=== PATIENT | male | born 1990 | race Two or more races ===

== ENCOUNTER 2018-11-26 08:37 | Emergency (ER) | payer OTHER ==
[2018-11-26 08:47] VITALS: BMI 25.9
--- NOTE | 2018-11-26 08:50 | PDOC ---
History of Present Illness - General Chief Complaint: Back Pain Stated Complaint: LOWER BACK PAIN - History of Present Illness Initial Comments: 11/26/18 08:48 28 yo male with no PMH presents with complaint of left sided lower back pain which began earlier this morning. He states that he tried to use the restroom but did not feel he needed to. He drank some tea his mother gave him which relieved his symptoms temporarily but they quickly returned. He states that he has vomited a few times since this morning, non bloody, non bilious. He also endorses tightness and pain in his hands and a rapid respiratory rate. Past History - Travel Traveled outside of the country in the last 30 days: No - Past Medical History Allergies/Adverse Reactions: Allergies Allergy/AdvReac Type Severity Reaction Status Date / Time shrimp Allergy Verified 11/26/18 08:44 Home Medications: Ambulatory Orders traMADol HCL [Ultram] 50 mg PO BID #8 tablet MDD 2 11/26/18 COPD: No Disorders: Yes (renal infection,) - Suicide/Smoking/Psychosocial Hx Smoking History: Never smoked Review of Systems - Review of Systems Constitutional: Yes: Weakness HEENTM: No: Blurred Vision Respiratory: No: Cough Cardiac (ROS): No: Chest Pain ABD/GI: Yes: Vomiting. No: Diarrhea, Nausea : No: Burning, Dysuria, Discharge Neurological: Yes: Tingling Psychiatric: Yes: Anxiety *Physical Exam - Vital Signs Last Vital Signs Temp Pulse Resp BP Pulse Ox 98.3 F 104 H 28 H 152/79 100 11/26/18 08:44 11/26/18 08:44 11/26/18 08:44 11/26/18 08:44 11/26/18 08:44 - Physical Exam Comments: 11/26/18 08:49 GEN: A&O, moderate emotional/pain distress HEENT: Moist mucus membranes HEART: Tachycardic, regular rhythm, no murmurs noted LUNGS: CTA b/l, increased respiratory rate with shallow breathing ABDOMEN: Soft, nontender MSK: Left lateral pain in lower thoracic and upper lumbar regions EXTREMITIES: 2+ pulses NEURO: CN II-XII in tact, 5/5 strength throghout, normal sensation throughout, flexion of C5 nerve distribution Moderate Sedation - Procedure Monitoring Vital Signs: Procedure Monitoring Vital Signs Temperature 98.3 F 11/26/18 08:44 Pulse Rate 104 H 11/26/18 08:44 Respiratory Rate 28 H 11/26/18 08:44 Blood Pressure 152/79 11/26/18 08:44 O2 Sat by Pulse Oximetry (%) 100 11/26/18 08:44 ED Treatment Course - LABORATORY CBC & Chemistry Diagram: 11/26/18 09:17 11/26/18 09:17 Medical Decision Making - Medical Decision Making 11/26/18 09:40 28 yo male presents with Left sided lower back pain that began this morning. He currently appears anxious which could likely be exacerbated by mother and family present in the room. He states he is the only son and the youngest child and that his mother is very protective of him. Pt does endorse a few episodes of vomiting. CBC, CMP, and Spiral CT to r/o nephrolithiasis pending chemistry. Will give Toradol 15 mg IV and Benadryl 25 mg IV for pain control and anxiety and reassess. 11/26/18 11:32 CT scan resulted with 4mm stone in proximal ureter. Pt feels much better followng Toradol. Will discharge with Urology follow up and urine strainer in addition to recommending plenty of PO fluid intake, Aleve/Ibuprofen for pain, with script for Tramadol for breakthrough pain. *DC/Admit/Observation/Transfer Diagnosis at time of Disposition: Nephrolithiasis - Discharge Dispostion Disposition: HOME Condition at time of disposition: Stable Decision to Admit order: No - Prescriptions Prescriptions: traMADol HCL [Ultram] 50 mg PO BID #8 tablet MDD 2 - Referrals Referrals: ON STAFF,NOT [Primary Care Provider] - Malick Moralez MD [Staff Physician] - - Patient Instructions Printed Discharge Instructions: DI for Kidney Stones Additional Instructions: You were seen in the emergency department today for a complaint of left sided lower back pain. You were found to have a kidney stone on the left side on a CT scan. It is small enough to where you will likely pass the stone without any additional procedures. It is important that you drink plenty of fluids to maintain adequate hydration. You can take Aleve/Ibuprofen for your pain as indicated on the appropriate packaging. If you still have severe pain you can take Tramadol which has been sent to your pharmacy. You should start with a half of a tablet at first and take the other half if you are still having significant pain. You should strain all of your urine until the stone passes with the provided urine strainer or another similar to it, and you should keep the stone and take to your urologist who may wish to send it off for analysis. You should follow up with a urologist for further evaluation and management of your kidney stones and to help prevent them from happening in the future. If you have any severe pain, fevers, large ammounts of blood in your urine, or any other concerning symptoms, you should be seen by your doctor or return to the emergency department. - Post Discharge Activity Forms/Work/School Notes: Back to School
--- NOTE | 2018-11-26 09:00 | PDOC ---
Attending Attestation - Resident Resident Name: Khang Oreilly - ED Attending Attestation I have performed the following: I have examined & evaluated the patient, The case was reviewed & discussed with the resident, I agree w/resident's findings & plan, Exceptions are as noted - HPI HPI: 11/26/18 10:23 this is a 28 yo M who presents to the ER with a complaint of left flank pain which began this morning No fevers or chills Pain was initially bearable after taking a tea but then became severe EMS called En route, pt developed carpopedal spasm No prior episodes like this no fevers or chills - Physicial Exam PE: 11/26/18 10:20 GENERAL: The patient is in no acute distress. HEAD: Normal with no signs of trauma. EYES: PERRLA, EOMI, sclera anicteric, conjunctiva clear. ENT: Ears normal, nares patent, oropharynx clear without exudates. Moist mucous membranes. NECK: Normal range of motion LUNGS: Breath sounds equal, clear to auscultation bilaterally. HEART:Regular rate and rhythm, normal S1 and S2 without murmur, rub or gallop. ABDOMEN: Soft, mild left lower quadrant tenderness to palpation EXTREMITIES: Normal range of motion, no edema. NEUROLOGICAL: Cranial nerves II through XII grossly intact. Normal speech. No focal neurological deficits. MUSCULOSKELETAL: (+) Left CVA tenderness SKIN: no rash - Medical Decision Making 11/26/18 10:17 DD: Kidney stone, pyelonephritis, musculoskeletal pain Will do: labs UA ReAssess Laboratory Tests 11/26/18 11/26/18 11/26/18 09:17 09:17 09:31 WBC 7.5 Hgb 16.0 Hct 46.8 Plt Count 248 BUN 12 Creatinine 1.2 Ur Leukocyte Esterase Negative Urine WBC (Auto) 29 Urine RBC (Auto) 1067 Concerning for kidney stone Pt also with hand spasm, ? related to hyperventilation Will re assess 11/26/18 10:26 11/26/18 11:45 CT - 4c x 3.5 x 2.5 cm stone in proximal ureter Pt controlled Will ask pt to follow up with Urologist Naproxen for pain Ultram for severe break through pain Clinical impression: obstructing kidney stone, initial presentation *DC/Admit/Observation/Transfer Diagnosis at time of Disposition: Nephrolithiasis - Discharge Dispostion Disposition: HOME Condition at time of disposition: Stable - Prescriptions Prescriptions: traMADol HCL [Ultram] 50 mg PO BID #8 tablet MDD 2 - Referrals Referrals: Malick Moralez MD [Staff Physician] - ON STAFF,NOT [Primary Care Provider] - - Patient Instructions Printed Discharge Instructions: DI for Kidney Stones Additional Instructions: You were seen in the emergency department today for a complaint of left sided lower back pain. You were found to have a kidney stone on the left side on a CT scan. It is small enough to where you will likely pass the stone without any additional procedures. It is important that you drink plenty of fluids to maintain adequate hydration. You can take Aleve/Ibuprofen for your pain as indicated on the appropriate packaging. If you still have severe pain you can take Tramadol which has been sent to your pharmacy. You should start with a half of a tablet at first and take the other half if you are still having significant pain. You should strain all of your urine until the stone passes with the provided urine strainer or another similar to it, and you should keep the stone and take to your urologist who may wish to send it off for analysis. You should follow up with a urologist for further evaluation and management of your kidney stones and to help prevent them from happening in the future. If you have any severe pain, fevers, large ammounts of blood in your urine, or any other concerning symptoms, you should be seen by your doctor or return to the emergency department. - Post Discharge Activity
[2018-11-26] MEDS ORDERED: SODIUM CHLORIDE 1,000 ML IV STA (09:02)
[2018-11-26] MEDS ORDERED: KETOROLAC TROMETHAMINE 30 MG/1 ML VIAL IVPUSH ONE (09:02)
[2018-11-26] MEDS ORDERED: KETOROLAC TROMETHAMINE 15 MG/ML VIAL ONE (09:25)
[2018-11-26 09:28] LABS: BASO % 0.5 % (0-2.0); EOS % 0.3 % (0-4.5); HEMATOCRIT 46.8 % (35.4-49); LYMPH % 12.7 % (8-40); MCHC 34.3 g/dl (32.0-35.9); MEAN CELL VOLUME 90.5 fl (80-96); MEAN PLT VOLUME 9.8 fl (7.5-11.1); MONO % 3.7 % (3.8-10.2); NEUT % 82.8 % (42.8-82.8); PLATELET COUNT 248 K/MM3 (134-434); RBC 5.17 M/mm3 (4.00-5.60); RDW 12.5 % (11.9-15.9); WHITE BLOOD COUNT 7.5 K/mm3 (4.0-10.0)
[2018-11-26 09:45] LABS: URINE APPEARANCE SLCLOUDY; URINE BILIRUBIN NEGATIVE (<2.0 mg/dL); URINE COLOR YELLOW; URINE GLUCOSE (UA) NEGATIVE (NEGATIVE); URINE KETONE 1+ (NEGATIVE); URINE LEUK ESTERASE NEGATIVE (NEGATIVE); URINE NITRITE NEGATIVE (NEGATIVE); URINE PROTEIN 2+ (NEGATIVE); URINE UROBILINOGEN NEGATIVE mg/dL (0.2-1.0)
[2018-11-26 09:48] LABS: URINE MUCUS RARE
[2018-11-26 09:53] LABS: ALBUMIN 4.7 g/dl (3.4-5.0); ALK PHOS 64 U/L (45-117); ANION GAP 12 MMOL/L (8-16); BILIRUBIN,TOTAL 1.4 mg/dL (0.2-1); BLOOD UREA NITROGEN 12 mg/dL (7-18); CALCIUM 10.2 mg/dL (8.5-10.1); CHLORIDE 104 mmol/L (98-107); CO2 22 mmol/L (21-32); CREATININE 1.2 mg/dL (0.55-1.3); GLUCOSE,RANDOM 99 mg/dL (74-106); POTASSIUM 4.2 mmol/L (3.5-5.1); SGOT/AST 23 U/L (15-37); SGPT/ALT 33 U/L (13-61); SODIUM 138 mmol/L (136-145); TOT PROT 8.5 g/dl (6.4-8.2)
[2018-11-26 11:21] VITALS: BP 116/63; PULSE 85; TEMP 98.2
== END 2018-11-26 11:33 | disposition home or self-care (01) ==
LOC: JER 08:37
PROC: 3E033GC Introduction of Other Therapeutic Substance into Peripheral Vein, Percutaneous Approach (ICD-10-PCS; principal; 2018-11-26)
PROC: 3E0333Z Introduction of Anti-inflammatory into Peripheral Vein, Percutaneous Approach (ICD-10-PCS; 2018-11-26)
PROC: 3E0337Z Introduction of Electrolytic and Water Balance Substance into Peripheral Vein, Percutaneous Approach (ICD-10-PCS; 2018-11-26)
DX: N20.0 Calculus of kidney (principal)
CPT/HCPCS: 36415; 74176-TC; 80053; 81003; 81015; 85025; 87086; 99282-25; J7030

== ENCOUNTER 2019-10-23 11:41 | Emergency (ER) | payer OTHER ==
[2019-10-23 11:57] VITALS: BP 116/69; PULSE 85; TEMP 98.6; BMI 29.9
--- NOTE | 2019-10-23 12:47 | PDOC ---
History of Present Illness - General Chief Complaint: Penile Drainage Stated Complaint: GENITAL PAIN Time Seen by Provider: 10/23/19 12:20 History Source: Patient - History of Present Illness Initial Comments: 10/23/19 13:41 29-year-old male complaining of penile discharge, penile lesions and drainage. For the last 3 to 4 days. Patient reports that partner also had similar symptoms unsure of STI exposure. Patient reports dysuria plan couple of days and you this going to that part of the [place] and does like go do that denies fever/chills, testicular pain, no past medical history Past History - Past Medical History Allergies/Adverse Reactions: Allergies Allergy/AdvReac Type Severity Reaction Status Date / Time shrimp Allergy Verified 11/26/18 08:44 Home Medications: Ambulatory Orders traMADol HCL [Ultram] 50 mg PO BID #8 tablet MDD 2 11/26/18 Cephalexin Monohydrate [Keflex -] 500 mg PO Q8H #30 capsule 10/23/19 Ibuprofen 600 mg PO QID PRN #20 tablet 10/23/19 Valacyclovir HCl [Valtrex] 1,000 mg PO BID #20 tablet 10/23/19 COPD: No Disorders: Yes (renal infection,) - Immunization History Immunization Up to Date: No - Psycho Social/Smoking Cessation Hx Smoking History: Never smoked Have you smoked in the past 12 months: No Information on smoking cessation initiated: No Hx Alcohol Use: No Drug/Substance Use Hx: No Review of Systems - Review of Systems Able to Perform ROS?: Yes Is the patient limited Hebrew proficient: No Constitutional: No: Symptoms Reported, See HPI, Chills, Diaphoresis, Fever, Loss of Appetite, Malaise, Night Sweats, Weakness, Weight Stable, Unintentional Wgt. Loss, Unexplained wgt Loss, Other : Yes: Burning, Dysuria, Discharge (penile discharge). No: Testicular Mass, Testicular Swelling, Testicular Pain *Physical Exam - Vital Signs Last Vital Signs Temp Pulse Resp BP Pulse Ox 98.6 F 85 18 116/69 99 10/23/19 11:54 10/23/19 11:54 10/23/19 11:54 10/23/19 11:54 10/23/19 11:54 - Physical Exam General Appearance: Yes: Appropriately Dressed Respiratory/Chest: positive: Lungs Clear, Normal Breath Sounds Male Genitalia: positive: other (vesicular lesion to penile shaft yellow discharge, tip of penis erythematous, ). negative: testicular tenderness Musculoskeletal: positive: Normal Inspection. negative: CVA Tenderness Extremity: positive: Normal Capillary Refill, Normal Inspection Integumentary: positive: Normal Color, Dry, Warm Neurologic: positive: Fully Oriented, Alert ED Progress Note - Progress Note Progress Note: 10/23/19 13:56 A: balanitis; STI; GENITAL hsv p: CEFTRIAXONE/ azithromycin ua UCX HSV Discharge - Discharge Information Problems reviewed: Yes Clinical Impression/Diagnosis: Balanitis, STI (sexually transmitted infection), HSV infection Condition: Stable Disposition: HOME - Additional Discharge Information Prescriptions: Cephalexin Monohydrate [Keflex -] 500 mg PO Q8H #30 capsule Ibuprofen 600 mg PO QID PRN #20 tablet PRN Reason: Pain Valacyclovir HCl [Valtrex] 1,000 mg PO BID #20 tablet - Follow up/Referral Referrals: Robert Grey MD [Primary Care Provider] - Mann Guthrie MD [Staff Physician] - Call tomorrow - Patient Discharge Instructions Patient Printed Discharge Instructions: How to Detect and Treat STDs Additional Instructions: Take Valtrex as prescribed Take cephalexin as prescribed. It is very important that you follow-up with your doctor. we we will call you if your test results are positive. - Post Discharge Activity Work/Back to School Note: Back to Work
[2019-10-23] MEDS ORDERED: AZITHROMYCIN 500 MG TABLET PO ONE (12:50)
[2019-10-23] MEDS ORDERED: AZITHROMYCIN 250 MG TABLET ONE (13:20)
[2019-10-23 13:57] LABS: URINE APPEARANCE CLEAR; URINE BILIRUBIN NEGATIVE (NEGATIVE); URINE COLOR YELLOW; URINE GLUCOSE (UA) NEGATIVE (NEGATIVE); URINE KETONE TRACE (NEGATIVE); URINE LEUK ESTERASE NEGATIVE (NEGATIVE); URINE NITRITE NEGATIVE (NEGATIVE); URINE PROTEIN NEGATIVE (NEGATIVE)
== END 2019-10-23 14:32 | disposition home or self-care (01) ==
LOC: JERFT 11:41
DX: N48.1 Balanitis (principal); A60.02 Herpesviral infection of other male genital organs
CPT/HCPCS: 36415; 81003; 87086; 87252; 87255; 87491; 87529; 87591; 87661; 96372; 99281-25

== ENCOUNTER 2020-08-21 14:46 | Emergency (ER) | payer OTHER | END 2020-08-21 15:08 | disposition home or self-care (01) | LOC: JVIRT 14:46 | DX: Z03.818 Encounter for observation for suspected exposure to other biological agents ruled out (principal) | CPT/HCPCS: C9803; Q3014-GT; U0003 ==